=== PATIENT | female | born 1960 | race Caucasian/White ===

== ENCOUNTER 2019-11-19 12:32 | Emergency (ER) | payer OTHER ==
[~2019-11-19] VITALS: Ht 165.1 cm; Wt 79.4 kg
[2019-11-19 12:33] VITALS: Ht 165.1 cm; Wt 79.4 kg
[2019-11-19 14:47] VITALS: BP 139/91
== END 2019-11-19 14:47 | disposition home or self-care (01) ==
LOC: ED 12:32
DX: S62.102A Fracture of unspecified carpal bone, left wrist, initial encounter for closed fracture (principal); S93.402A Sprain of unspecified ligament of left ankle, initial encounter; W17.89XA Other fall from one level to another, initial encounter; Y93.89 Activity, other specified; Y92.89 Other specified places as the place of occurrence of the external cause; Y99.8 Other external cause status
CPT/HCPCS: 90715; J1885; J2405; J3010; Q0092